=== PATIENT | female | born 1990 | race Caucasian/White ===

== ENCOUNTER 2016-07-04 08:53 | Outpatient (CLI) | payer MEDICAID ==
[~2016-07-04] VITALS: Ht 165.1 cm; Wt 55.3 kg
[~2016-07-04 08:53] MED LIST: BENTYL10 MG PO; DARVOCET-N 1001 EACH PO; FLEXERIL10 MG PO; IBU-8800 MG PO; IBU600 MG PO; MEDROL 4MG. DOSE4 MG PO; MIRENA52 MG IU; MOTRIN400 MG PO; MOTRIN600 MG PO; NAPROSYN 500MG500 MG PO; NOMEDS *; PYRIDIUM 200MG200 MG PO; SEPTRA DS 800 M1 TAB PO; TESSALON PERLE200 MG PO; TYLENOL W/CODEI1 TAB PO; VICODIN 5/500 T1 TAB PO; ZANTAC 150150 MG PO; ZITHROMAX Z PA250 MG PO; Zofran4 MG PO
[2016-07-04 09:10] VITALS: BP 100/59
[2016-07-04] MEDS ORDERED: MAKENA250 MG/ML IM (09:13)
[2016-07-04] MEDS ORDERED: PRENATAL 19 TA1 EACH PO (09:13)
== END 2016-07-04 09:22 | disposition home or self-care (01) ==
LOC: OB 08:53 → OBOUT 08:53 → OB 08:54 → OBOUT 09:22
DX: O26.92 Pregnancy related conditions, unspecified, second trimester (principal); Z3A.29 29 weeks gestation of pregnancy